=== PATIENT | male | born 1985 | race Caucasian/White ===

== ENCOUNTER 2019-11-04 15:53 | Emergency (ER) | payer OTHER ==
[~2019-11-04] VITALS: Ht 175.2 cm; Wt 83.0 kg
[~2019-11-04 15:53] MED LIST: ENALAPRIL10 MG PO; LANOXIN0.25 MG PO
[2019-11-04 15:57] VITALS: BP 128/55
[2019-11-04] MEDS ORDERED: CLARITIN10 MG PO (16:57)
[2019-11-04] MEDS ORDERED: FLONASE ALLERG9.9 ML NAS (16:57)
[2019-11-04] MEDS ORDERED: PREDNISONE10 MG PO (16:57)
[2019-11-04] MEDS ORDERED: TESSALON PERLE100 M1 PO (16:57)
== END 2019-11-04 18:23 | disposition home or self-care (01) ==
LOC: ED 15:53
DX: J06.9 Acute upper respiratory infection, unspecified (principal); Z79.899 Other long term (current) drug therapy; Z88.2 Allergy status to sulfonamides; Z88.1 Allergy status to other antibiotic agents

== ENCOUNTER → 2019-11-29 | Outpatient (CLI) | payer OTHER ==
[~2019-11-29] MED LIST changes: +CLARITIN10 MG PO; +FLONASE ALLERG9.9 ML NAS; +PREDNISONE10 MG PO; +TESSALON PERLE100 M1 PO
[2019-12-01 04:09] LABS: HEPATITIS B SURFACE AG Negative (Negative); HEPATITIS C VIRUS ANTIBODY 0.7 s/co (0.0-0.9)
== END | disposition home or self-care (01) ==
LOC: LAB 13:41
PROVIDERS: Internal Medicine
DX: Z11.3 Encounter for screening for infections with a predominantly sexual mode of transmission (principal)

== ENCOUNTER → 2020-10-08 | Outpatient (CLI) | payer MEDICARE, MEDICAID | END | disposition home or self-care (01) | LOC: COVID19 14:28 | PROVIDERS: ATTEND Internal Medicine | DX: Z20.828 Contact with and (suspected) exposure to other viral communicable diseases (principal) ==